=== PATIENT | male | born 1980 | race Caucasian/White ===

== ENCOUNTER 2017-08-11 16:13 | Emergency (ER) | payer OTHER ==
[~2017-08-11] VITALS: Ht 188 cm; Wt 70.0 kg
[2017-08-11 16:19] VITALS: Ht 188 cm; Wt 70.0 kg
[2017-08-11] MEDS ORDERED: SOD CHLORIDE 0.9% 1,000 ML IV STA (17:15)
[2017-08-11] MEDS ORDERED: FOLIC ACID 1 MG, THIAMINE 100 MG, MULTIVITAMINS 10 ML, MAGNESIUM SULFATE 2 GM in SOD CH... IV STA (17:26)
[2017-08-11] MEDS ORDERED: LORAZEPAM 2 MG INJ IV STA (17:26)
[2017-08-11] MEDS ORDERED: ONDANSETRON 4 MG INJ IV ONE (17:30)
[2017-08-11 18:03] LABS: BASOPHILS % 0.9 % (0.0-2.0); EOSINOPHILS % 0.9 % (0.0-7.0); HEMATOCRIT 44.8 % (42.0-52.0); HEMOGLOBIN 15.1 g/dl (14.0-18.0); LYMPHOCYTES # 1.8 10^3/ul (0.8-2.9); LYMPHOCYTES % 40.2 % (15.0-51.0); MEAN CORPUSCULAR HEMOGLOBIN 27.7 pg (29.0-33.0); MEAN CORPUSCULAR HGB CONC 33.7 g/dl (32.0-37.0); MEAN CORPUSCULAR VOLUME 82.2 fl (82.0-101.0); MEAN PLATELET VOLUME 9.3 fl (7.4-10.4); MONOCYTE # 0.4 10^3/ul (0.3-0.9); MONOCYTES % 8.6 % (0.0-11.0); NEUTROPHIL # 2.2 10^3/ul (1.6-7.5); NEUTROPHILS % 49.2 % (39.0-77.0); PLATELET COUNT 280 10^3/UL (140-415); RED BLOOD COUNT 5.45 10^6/ul (4.70-6.10); RED CELL DISTRIBUTION WIDTH 12.5 % (11.5-14.5); WHITE BLOOD COUNT 4.5 10^3/ul (4.8-10.8)
--- NOTE | 2017-08-11 18:12 | ERD ---
ER Documentation Chief Complaint Chief Complaint nausea and vomiting x 3 days HPI 37 y/o male present to the ED c/o persistent nausea and vomiting >10 during the last 12h. The patient has a history of alcohol abuse and has been binge drinking during 6 days. His last drink was today in the morning. The emesis is postprandial, nonbloody. No treatment attempted before to his arrival ROS All systems reviewed and are negative except as per history of present illness. Medications Home Meds Active Scripts Lorazepam* (Lorazepam*) 1 Mg Tablet, 1 MG PO Q8 for 3 Days, #10 TAB Prov:ABHINAV PANTOJA MD 08/11/17 Allergies Allergies: Coded Allergies: No Known Allergy (Unverified , 08/11/17) PMhx/Soc Medical and Surgical Hx: pt denies Medical Hx, pt denies Surgical Hx Hx Alcohol Use: Yes Hx Substance Use: No Hx Tobacco Use: Yes Smoking Status: Current every day smoker Physical Exam Vitals Vital Signs Date Time Temp Pulse Resp B/P Pulse Ox O2 Delivery O2 Flow Rate FiO2 08/11/17 23:40 88 16 132/76 98 Room Air 08/11/17 16:19 98.0 106 18 148/82 98 Physical Exam Const: Alert, oriented, in mild distress due to nausea Head: Atraumatic Eyes: Normal Conjunctiva ENT: Dry oral mucosa Neck: Full range of motion. Resp: Clear to auscultation bilaterally Cardio: Regular rate and rhythm, no murmurs Abd: Soft, non tender, non distended. Normal bowel sounds Neur: Awake and alert Psych: Normal Mood and Affect Result Diagram: 08/11/17 1740 08/11/17 2202 Results 24 hrs Laboratory Tests Test 08/11/17 17:40 08/11/17 22:02 White Blood Count 4.510^3/ul Red Blood Count 5.4510^6/ul Hemoglobin 15.1g/dl Hematocrit 44.8% Mean Corpuscular Volume 82.2fl Mean Corpuscular Hemoglobin 27.7pg Mean Corpuscular Hemoglobin Concent 33.7g/dl Red Cell Distribution Width 12.5% Platelet Count 55766^3/UL Mean Platelet Volume 9.3fl Neutrophils % 49.2% Lymphocytes % 40.2% Monocytes % 8.6% Eosinophils % 0.9% Basophils % 0.9% Nucleated Red Blood Cells % 0.0/100WBC Neutrophils # 2.210^3/ul Lymphocytes # 1.810^3/ul Monocytes # 0.410^3/ul Eosinophils # 0.010^3/ul Basophils # 0.010^3/ul Nucleated Red Blood Cells # 0.010^3/ul Sodium Level 145mmol/L 138mmol/L Potassium Level 3.8mmol/L 3.3mmol/L Chloride Level 101mmol/L 105mmol/L Carbon Dioxide Level 22mmol/L 22mmol/L Anion Gap 26 14 Blood Urea Nitrogen 13mg/dl 11mg/dl Creatinine 0.72mg/dl 0.59mg/dl Glucose Level 76mg/dl 188mg/dl Lactic Acid Level 5.7mmol/L Calcium Level 9.6mg/dl 7.8mg/dl Total Bilirubin 0.8mg/dl 0.5mg/dl Direct Bilirubin 0.00mg/dl 0.00mg/dl Indirect Bilirubin 0.8mg/dl 0.5mg/dl Aspartate Amino Transf (AST/SGOT) 46IU/L 32IU/L Alanine Aminotransferase (ALT/SGPT) 48IU/L 36IU/L Alkaline Phosphatase 54IU/L 34IU/L Total Protein 8.4g/dl 6.1g/dl Albumin 5.1g/dl 3.2g/dl Globulin 3.30g/dl 2.90g/dl Albumin/Globulin Ratio 1.54 1.10 Ethyl Alcohol Level 181.0mg/dl Current Medications Medications (Trade) Dose Ordered Sig/Tacho Route PRN Reason Start Time Stop Time Status Last Admin Dose Admin Sodium Chloride (NS) 1,000 ml @ 1,000 mls/hr Q1H STAT IV 08/11/17 17:15 08/11/17 18:14 DC 08/11/17 17:31 Ondansetron HCl (Zofran Inj) 4 mg ONCE ONCE IV 08/11/17 17:30 08/11/17 17:31 DC 08/11/17 17:32 Lorazepam 1 mg 1 mg ONCE STAT IV 08/11/17 17:26 08/11/17 17:28 DC 08/11/17 17:32 Folic Acid 1 mg/ Thiamine HCl 100 mg/Multivitamins 10 ml/Magnesium Sulfate 2 gm/ Sodium Chloride 1,015.2 ml @ 500 mls/ hr Q2H2M STAT IV 08/11/17 17:26 08/11/17 19:27 DC 08/11/17 19:19 Dextrose/Sodium Chloride (D5-1/2ns) 1,000 ml @ 150 mls/hr Q6H40M ONCE IV 08/11/17 19:07 08/11/17 23:42 DC 08/11/17 19:28 Lorazepam (Ativan) 1 mg ONCE ONCE PO 08/11/17 22:30 08/11/17 22:31 DC 08/11/17 22:13 Procedures/MDM 37 y/o male with history of alcohol abuse, presents c/o persistent nausea and vomiting for the last 8h after binge drinking. Physical exam was consistent with dehydration, vital signs showed mild tachycardia. Neuro exam was nonfocal. No signs of autonomic instability. Labs showed acidosis most likely secondary to ETOH, No hyperglycemia, and normal kidney function. The patient received hydration plus banana bag and lorazepam presenting improving of his symptoms. Labs will be repeated in 3 hours and most likely the patient will be DC home. I will transfer care to Michelle Bell N.P for disposition after finishing IV hydration Departure Diagnosis: Primary Impression: Nausea and vomiting Additional Impressions: Alcohol abuse Dehydration Condition: Stable ABHINAV PANTOJA MD Aug 11, 2017 18:12
[2017-08-11] MEDS ORDERED: LORA1TAB PO (18:22)
[2017-08-11 18:26] LABS: ALBUMIN 5.1 g/dl (3.3-4.9); ALBUMIN/GLOBULIN RATIO 1.54; BILIRUBIN,INDIRECT 0.8 mg/dl (0-1.1); BILIRUBIN,TOTAL 0.8 mg/dl (0.2-1.3); CALCIUM 9.6 mg/dl (8.4-10.2); CREATININE 0.72 mg/dl (0.61-1.24); POTASSIUM 3.8 mmol/L (3.5-5.1); TOTAL PROTEIN 8.4 g/dl (6.1-8.1)
[2017-08-11] MEDS ORDERED: DEXTROSE 5%-0.45% NACL 1,000 ML IV ONE (19:07)
[2017-08-11] MEDS ORDERED: LORAZEPAM 1 MG TAB PO ONE (22:30)
[2017-08-11 22:38] LABS: ALBUMIN 3.2 g/dl (3.3-4.9); ALBUMIN/GLOBULIN RATIO 1.1; BILIRUBIN,INDIRECT 0.5 mg/dl (0-1.1); BILIRUBIN,TOTAL 0.5 mg/dl (0.2-1.3); CALCIUM 7.8 mg/dl (8.4-10.2); CREATININE 0.59 mg/dl (0.61-1.24); POTASSIUM 3.3 mmol/L (3.5-5.1); TOTAL PROTEIN 6.1 g/dl (6.1-8.1)
[2017-08-11 23:40] VITALS: BP 132/76; PULSE 88; RESP 16
== END 2017-08-11 23:42 | disposition home or self-care (01) ==
LOC: FTE 16:13
DX: R11.2 Nausea with vomiting, unspecified (principal); F10.10 Alcohol abuse, uncomplicated; E86.0 Dehydration; F17.210 Nicotine dependence, cigarettes, uncomplicated
CPT/HCPCS: 36415; 80053; 80306; 83605; 85025; 96374; 96375; 99284; J2060; J2405; J3411; J3475; J7030; J7042